=== PATIENT | female | born 1995 | race Caucasian/White ===

== ENCOUNTER 2017-06-03 17:59 | Emergency (ER) | payer OTHER ==
[2017-06-03 18:00] VITALS: BP 139/79; PULSE 75; RESP 14; TEMP 98.4; O2SAT 98
--- NOTE | 2017-06-03 18:35 | PD ---
HPI Chief Complaint: Bleeding Time Seen by Provider: 18:16 Travel History International Travel<30 days: No Contact w/Intl Traveler<30days: No Traveled to known affect area: No History of Present Illness HPI 21-year-old female complains of vaginal bleeding. Patient states that the vaginal bleeding started this morning. Patient states that she has sex last night. Patient denies any abdominal pelvic pain. Patient states that she has regular menstruation period in the past. Patient states that she never had irregular periods in the past. Patient states that her last menstruation period was on the last month. Patient denies any dysuria or frequency. Patient denies any fever chills. Patient denies any back pain. PFSH Past Medical History Medical History: Denies Significant Hx ?: Not LMP: May Past Surgical History Surgical History: No Previous Surgery Social History Alcohol Use: Yes Tobacco Use: No Substance Use: No Allergies-Medications (Allergen,Severity, Reaction): Coded Allergies: No Known Allergies (Unverified , 06/03/17) Reported Meds & Prescriptions Reported Meds & Active Scripts Active No Active Prescriptions or Reported Medications Review of Systems General / Constitutional: No: Fever Eyes: No: Visual changes HENT: No: Headaches Cardiovascular: No: Chest Pain or Discomfort Respiratory: No: Shortness of Breath Gastrointestinal: No: Abdominal Pain Genitourinary: Positive: Vaginal Bleeding, No: Dysuria Musculoskeletal: No: Pain Skin: No Rash Neurologic: No: Weakness Psychiatric: No: Depression Endocrine: No: Polydipsia Hematologic/Lymphatic: No: Easy Bruising Physical Exam Narrative GENERAL: Well-nourished, well-developed patient. SKIN: Focused skin assessment warm/dry. HEAD: Normocephalic. EYES: No scleral icterus. No injection or drainage. NECK: Supple, trachea midline. No JVD or lymphadenopathy. CARDIOVASCULAR: Regular rate and rhythm without murmurs, gallops, or rubs. RESPIRATORY: Breath sounds equal bilaterally. No accessory muscle use. GASTROINTESTINAL: Abdomen soft, non-tender, nondistended. MUSCULOSKELETAL: No cyanosis, or edema. BACK: Nontender without obvious deformity. No CVA tenderness. SAMPLE MAKER HAND exam: Patient has small amount of blood in the vaginal vault. No obvious injury in the vaginal vault. The cervix is closed. The uterus is nonenlarged and nontender on palpation. No adnexal mass or tenderness. Data Data Last Documented VS Vital Signs Date Time Temp Pulse Resp B/P (MAP) Pulse Ox O2 Delivery O2 Flow Rate FiO2 06/03/17 18:00 98.4 75 14 139/79 (99) 98 Orders Orders Ed Urine Pregnancytest Poc (06/03/17 18:27) MDM Medical Decision Making Medical Screen Exam Complete: Yes Emergency Medical Condition: Yes Differential Diagnosis Differential diagnosis including abnormal uterine bleeding, injury, threatened AB, ectopic . Narrative Course 21-year-old female with vaginal bleeding. Examination benign. Urine test negative. Diagnosis Primary Impression: Abnormal uterine bleeding Patient Instructions: General Instructions Additional Instructions: Follow up with desk assistant. Return if persistent bleeding, pelvic pain, fever chills. Med/Other Pt SpecificInfo: No Meds Exist/No RX given Scripts No Active Prescriptions or Reported Meds Disposition: 01 DISCHARGE HOME Condition: Stable Gorge Henderson MD Jun 03, 2017 18:35
== END 2017-06-03 18:53 | disposition home or self-care (01) ==
LOC: NEPD 17:59
DX: N93.9 Abnormal uterine and vaginal bleeding, unspecified (principal)
CPT/HCPCS: 84703; 99284